=== PATIENT | female | born 1940 | race Caucasian/White ===

== ENCOUNTER 2017-05-28 11:58 | Emergency (ER) | payer MEDICARE ==
[2017-05-28] MEDS ORDERED: Nystatin TOP POWDER* 15 GM BTL TOPICAL SCH (14:00)
--- NOTE | 2017-05-28 14:27 | ED ---
GI/ HPI - HPI Summary HPI Summary: Patient presents to the ED with a concern for a Faulkner catheter change. She states while at home today, her home health aides were unable to change out her Faulkner catheter as they were meeting resistance. She denies any other complaints or concerns. She does however state that during the changing of the catheter this morning she was experiencing pain in the intertriginous folds of her upper thighs and around her labia. She is nearly bed bound and is unable to care for herself. However, she has a at bedside and home health aides and states she is doing well with this. She denies any fevers, sweats, chills. She denies any other recent illness. Denies any other complaints at this time. - History of Current Complaint Chief Complaint: EDUrogenitalProblems Time Seen by Provider: 05/28/17 13:27 Stated Complaint: CATH CHANGE Hx Obtained From: Patient Hx Last Menstrual Period: N/A Onset/Duration: Started Hours Ago Timing: Constant Severity: Moderate Current Severity: Moderate Pain Intensity: 0 Aggravating Factor(s): Nothing Alleviating Factor(s): Nothing - Allergy/Home Medications Allergies/Adverse Reactions: Allergies Allergy/AdvReac Type Severity Reaction Status Date / Time diazepam Allergy Unknown Verified 05/28/17 13:58 Reaction Details lisinopril Allergy Coughing Verified 05/28/17 13:59 losartan Allergy Muscle Ache Verified 05/28/17 13:59 prednisone Allergy Coughing Verified 05/28/17 13:59 PMH/Surg Hx/FS Hx/Imm Hx Previously Healthy: Yes Cardiovascular History: Reports: Hx Hypertension Neurological History: Reports: Other Neuro Impairments/Disorders - paraplegia - Surgical History Surgery Procedure, Year, and Place: cholecystectomy. D & C - Immunization History Hx Pertussis Vaccination: No Immunizations Up to Date: Unable to Obtain/Confirm Infectious Disease History: No Infectious Disease History: Denies: Traveled Outside the [place] in Last 30 Days - Social History Occupation: Unemployed, Disabled Lives: With Family Alcohol Use: None Hx Substance Use: No Substance Use Type: Reports: None Hx Tobacco Use: No Smoking Status (MU): Never Smoked Tobacco Review of Systems Constitutional: Negative Negative: Fever, Chills, Fatigue Eyes: Negative Cardiovascular: Negative Negative: Shortness Of Breath, Cough Negative: Abdominal Pain, Vomiting, Diarrhea, Nausea Positive: see HPI Musculoskeletal: Negative Positive: Other - intertriginous candidiasis in the inner labial folds and inner thighs Neurological: Negative All Other Systems Reviewed And Are Negative: Yes Physical Exam Triage Information Reviewed: Yes Vital Signs On Initial Exam: Initial Vitals Temp Pulse Resp BP Pulse Ox 97.8 F 62 16 122/61 96 05/28/17 12:08 05/28/17 12:08 05/28/17 12:08 05/28/17 12:08 05/28/17 12:08 Vital Signs Reviewed: Yes Appearance: Positive: Well-Appearing, Well-Nourished Skin: Positive: Warm, Skin Color Reflects Adequate Perfusion, Other - Intertriginous candidiasis in the inner labial folds and the inner thighs Head/Face: Positive: Normal Head/Face Inspection Eyes: Positive: EOMI, YADI, Conjunctiva Clear Neck: Positive: Supple, No Lymphadenopathy Respiratory/Lung Sounds: Positive: Clear to Auscultation, Breath Sounds Present Cardiovascular: Positive: Normal, RRR, Pulses are Symmetrical in both Upper and Lower Extremities Musculoskeletal: Positive: Normal, Strength/ROM Intact Neurological: Positive: Speech Normal Psychiatric: Positive: Affect/Mood Appropriate Diagnostics - Vital Signs Vital Signs Temp Pulse Resp BP Pulse Ox 05/28/17 12:08 97.8 F 62 16 122/61 96 - Laboratory Lab Statement: Any lab studies that have been ordered have been reviewed, and results considered in the medical decision making process. GIGU Course/Dx - Course Course Of Treatment: During the course of treatment, the patient is evaluated for Faulkner catheter replacement. Faulkner catheter was able to successfully be removed and replaced without any concerns. However, during the catheter exchange there is noted to be intertriginous candidiasis in the labial folds as well as the inner thighs and vaginal area. She is given nystatin powder and is to use 3 times daily for this. She is also given a prescription. The urine is flowing into the catheter freely after 30 minutes of insertion and patient is okay to be discharged this time. - Diagnoses Provider Diagnoses: Faulkner catheter problem, Intertriginous candidiasis Discharge - Discharge Plan Condition: Stable Disposition: HOME Prescriptions: Nystatin TOP POWDER* 1 applic TOPICAL TID #1 btl Patient Education Materials: Faulkner Catheter Placement and Care (ED), Skin Yeast Infection (ED) Referrals: Jon Jones MD [Primary Care Provider] - Additional Instructions: Please follow-up with your PCP
[2017-05-28 14:32] LABS: Urine Appearance Cloudy; Urine Blood 1+ (Negative); Urine Color Yellow; Urine Ketones Negative (Negative); Urine Protein 1+(30 mg/dL) (Negative); Urine Specific Gravity 1.009 (1.010-1.030); Urine Urobilinogen Negative (Negative)
[2017-05-28 15:02] VITALS: BP 122/65
--- NOTE | 2017-05-30 09:22 | PN ---
Progress Note - Progress Note Date of Service: 05/28/17 Note: patient was placed on macrobid at discharge and after catheter change >100,000 of e. coli shown on culture however patient does have mclean catheter. spoke with patient at 9:15am who understands she should follow up with PCP to re -check catheter after change and obtain another urine specimen to ensure improvement although some bacteria is normal with catheter placement. no further action required at this time. will wait for final culture sensitivity results.
== END 2017-05-28 15:00 | disposition home or self-care (01) ==
LOC: ED 11:58
DX: T83.9XXA Unspecified complication of genitourinary prosthetic device, implant and graft, initial encounter (principal); B37.2 Candidiasis of skin and nail
CPT/HCPCS: 81003; 81015; 87077; 87086; 87186; 99282; A9270-GY

== ENCOUNTER 2022-05-05 12:07 | Inpatient (IN) ==
[2022-05-05] MEDS ORDERED: Lactated Ringers 1000 ml BAG 1,000 ML IV ONE (12:54)
[2022-05-05 13:09] LABS: ABS Lymphocytes 0.6 10^3/ul (1.0-4.8); ABS Monocytes 0.6 10^3/ul (0-0.8); ABS Neutrophils 19.8 10^3/ul (1.5-7.7); Eosinophil % 0.1 %; Hematocrit 40 % (35-47); Lymphocyte % 2.9 %; Mean Corpuscular HGB Conc 33 g/dL (31-36); Mean Corpuscular Hemoglobin 30 pg (27-31); Mean Corpuscular Volume 92 fL (80-97); Platelet Count 180 10^3/uL (150-450); Red Blood Count 4.36 10^6 /uL (3.70-4.87); Red Cell Distribution Width 14 % (10-15); White Blood Count 21.1 10^3/uL (3.5-10.8)
[2022-05-05] MEDS ORDERED: cefTRIAXone 2 gm/50 mL D5W 2 GM/50 ML BAG IV ONE (13:19)
[2022-05-05 13:24] LABS: Activated Partial Thrombo Time 34.6 seconds (26.0-38.0); INR 1.66 (0.88-1.18)
[2022-05-05] MEDS ORDERED: cefTRIAXone 2 GM ADDV.VIAL 2 GM in NS 0.9% 100 ml BAG 100 ML IV ONE (13:30)
[2022-05-05] MEDS ORDERED: Vancomycin 1,750 MG in NS 0.9% 500 ml BAG 500 ML IVPB ONE (13:30)
[2022-05-05 13:32] LABS: High Sens Troponin Baseline 19 pg/mL (<15)
[2022-05-05 13:50] LABS: ALT 13 U/L (7-52); Albumin 3.5 g/dL (3.2-5.2); Albumin/Globulin Ratio 1.5 (1-3); Alkaline Phosphatase 125 U/L (35-149); Blood Urea Nitrogen 22 mg/dL (6-24); C Reactive Protein 272.83 mg/L (<8.01); CO2 Carbon Dioxide 28 mmol/L (22-32); Calcium 8.6 mg/dL (8.6-10.3); Chloride 96 mmol/L (101-111); Creatinine, Serum 1.14 mg/dL (0.51-0.95); Globulin 2.4 g/dL (2-4); Glucose 128 mg/dL (70-100); Sodium 133 mmol/L (135-145); Total Protein 5.9 g/dL (6.4-8.9); eGFR CKD-EPI 48.4 (>60)
[2022-05-05 13:52] LABS: Anion Gap 9 mmol/L (2-11)
[2022-05-05 14:03] LABS: Urine Appearance Cloudy; Urine Bilirubin Negative (Negative); Urine Blood 1+ (Negative); Urine Color Yellow; Urine Glucose Negative (Negative); Urine Ketones Negative (Negative); Urine Nitrite Positive (Negative); Urine Protein Negative (Negative); Urine Specific Gravity 1.009 (1.002-1.030); Urine Urobilinogen Negative (Negative)
[2022-05-05 14:08] LABS: Urine Amorphous Crystals Present (Absent); Urine Bacteria 1+ (Absent); Urine Red Blood Cell 1+(3-5/hpf) (Absent); Urine White Blood Cell 1+(6-10/hpf) (Absent)
[2022-05-05 14:50] LABS: High Sensitivity Troponin 1 Hr 15 pg/mL (<15)
[2022-05-05] MEDS ORDERED: Vancomycin 1,750 MG in NS 0.9% 500 ml BAG 500 ML IVPB SCH (15:00)
[2022-05-05 15:15] LABS: Potassium Redraw 3.8 mmol/L (3.5-5.0)
[2022-05-05] MEDS ORDERED: Enoxaparin 40 MG/0.4 ML SYR SUBCUT SCH (16:00)
[2022-05-05] MEDS ORDERED: Vancomycin per Pharmacy 1 EA NOTE FOLLOW UP PRN (16:50)
[2022-05-05] MEDS ORDERED: Polyethylene Glycol 3350 17 GM PACKET PO PRN (16:51)
[2022-05-05] MEDS ORDERED: Lactated Ringers 1000 ml BAG 1,000 ML IV SCH (17:00)
[2022-05-05] MEDS ORDERED: Vancomycin 2,000 MG in NS 0.9% 500 ml BAG 500 ML IVPB ONE (17:00)
[2022-05-05] MEDS: Lactated Ringers 1000 ml BAG 1,000 ML IV SCH (18:32)
[2022-05-05] MEDS ORDERED: Nystatin TOP POWDER 15 GM BTL TOPICAL PRN (21:00)
[2022-05-05] MEDS ORDERED: Lidocaine PATCH 5% PATCH TRANSDERM ONE (21:01)
[2022-05-05] MEDS ORDERED: Vancomycin 1,500 MG in NS 0.9% 250 ml 250 ML IVPB SCH (23:00)
[2022-05-05] MEDS ORDERED: Lactated Ringers 1000 ml BAG 500 ML IV ONE (23:46)
[2022-05-06 05:47] LABS: Hematocrit 33 % (35-47); Mean Corpuscular HGB Conc 33 g/dL (31-36); Mean Corpuscular Hemoglobin 30 pg (27-31); Mean Corpuscular Volume 90 fL (80-97); Mean Platelet Volume 7.4 fL (7.4-10.4); Platelet Count 161 10^3/uL (150-450); Red Blood Count 3.66 10^6 /uL (3.70-4.87); Red Cell Distribution Width 13 % (10-15); White Blood Count 11.3 10^3/uL (3.5-10.8)
[2022-05-06 06:22] LABS: Calcium 8.1 mg/dL (8.6-10.3); Magnesium 1.6 mg/dL (1.9-2.7); eGFR CKD-EPI 56.6 (>60)
[2022-05-06] MEDS ORDERED: Potassium Chlor 20 meq TAB.ER PO ONE ×2 (06:49→10:00)
[2022-05-06] MEDS ORDERED: Magnesium Sulfate 2 gm BAG 2 GM/50 ML BAG IVPB ONE (06:49)
[2022-05-06] MEDS: Lactated Ringers 1000 ml BAG 1,000 ML IV SCH (09:38)
[2022-05-06] MEDS ORDERED: cefTRIAXone VIAL 1,000 MG in NS 0.9% 50 ML 50 ML IVPB SCH (14:00)
[2022-05-06] MEDS: cefTRIAXone 1 gm/50 mL D5W 1 GM/50 ML BAG IV SCH (14:12)
[2022-05-06] MEDS ORDERED: Vancomycin 1,750 MG in NS 0.9% 500 ml BAG 500 ML IVPB SCH (15:00)
[2022-05-07 09:59] LABS: Hematocrit 37 % (35-47); Hemoglobin 12.3 g/dL (12.0-16.0); Mean Corpuscular HGB Conc 33 g/dL (31-36); Mean Corpuscular Hemoglobin 30 pg (27-31); Mean Corpuscular Volume 92 fL (80-97); Mean Platelet Volume 7.4 fL (7.4-10.4); Platelet Count 197 10^3/uL (150-450); Red Blood Count 4.05 10^6 /uL (3.70-4.87); Red Cell Distribution Width 14 % (10-15); White Blood Count 7.4 10^3/uL (3.5-10.8)
[2022-05-07 10:32] LABS: C Reactive Protein 195.82 mg/L (<8.01); Calcium 8.6 mg/dL (8.6-10.3); Creatinine, Serum 0.91 mg/dL (0.51-0.95); Magnesium 2.1 mg/dL (1.9-2.7); Potassium 3.9 mmol/L (3.5-5.0); eGFR CKD-EPI 63.4 (>60)
[2022-05-07] MEDS: cefTRIAXone 1 gm/50 mL D5W 1 GM/50 ML BAG IV SCH (14:33)
[2022-05-08] MEDS ORDERED: CMCS:Irbesartan 150 mg TAB (NF) PO SCH (09:00)
[2022-05-08 11:57] VITALS: BP 112/70
[2022-05-08] MEDS ORDERED: Vancomycin Trough Check NOTE FOLLOW UP ONE (14:30)
== END 2022-05-08 13:15 | disposition home or self-care (01) | DRG 602 ==
LOC: ED 12:07 → EDHOLD 12:07 → SUATTDRO 15:32 → EDHOLD 17:29 → MED 17:36
PROVIDERS: ADMIT Internal Medicine; ATTEND Hospitalist